=== PATIENT | female | born 1940 | race Two or more races ===

== ENCOUNTER 2020-05-16 11:30 | Inpatient (IN) | payer OTHER ==
[~2020-05-16] VITALS: Ht 152.4 cm; Wt 54.4 kg
[2020-05-16] MEDS ORDERED: GABAPENTIN400 MG PO (14:58)
[2020-05-16] MEDS ORDERED: THEOPHYLLINE A300 M1 PO (14:59)
[2020-05-16] MEDS ORDERED: NORVASC10 MG PO (14:59)
[2020-05-16] MEDS ORDERED: LOSARTAN-HCTZ1 EAC1 PO (14:59)
[2020-05-16] MEDS ORDERED: SINGULAIR 10MG10 MG PO (14:59)
[2020-05-16] MEDS ORDERED: METFORMIN HCL500 M3 PO (14:59)
[2020-05-16] MEDS ORDERED: PEPCID AC10 MG PO (15:00)
[2020-05-25] MEDS ORDERED: OXYC1TAB9 PO (08:01)
[2020-05-25] MEDS ORDERED: BACTRIM 400-801 EACH PO (08:01)
[2020-05-25] MEDS ORDERED: INTEGRA PLUS C1 EACH PO (08:01)
[2020-05-25] MEDS ORDERED: XARELTO10 MG PO (08:01)
[2020-05-25] MEDS ORDERED: MONTELUKAST SOD10 MG PO (13:10)
[2020-05-25] MEDS ORDERED: PROAIR RESPICL90 MCG IH (13:10)
== END 2020-05-25 17:53 | DRG 470 ==
LOC: SURH 05-23 05:35 → O/R 05-23 05:35 → SURH 05-23 11:05
PROVIDERS: ADMIT Orthopaedic Surgery Sports Medicine; ATTEND Orthopaedic Surgery Sports Medicine
PROC: 0SRD0J9 Replacement of Left Knee Joint with Synthetic Substitute, Cemented, Open Approach (ICD-10-PCS; principal; 2020-05-23 14:30)
PROC: 3E0F7GC Introduction of Other Therapeutic Substance into Respiratory Tract, Via Natural or Artificial Opening (ICD-10-PCS; 2020-05-25)
DX: M17.12 Unilateral primary osteoarthritis, left knee (principal); J45.909 Unspecified asthma, uncomplicated